=== PATIENT | male | born 1945 | race Caucasian/White ===

== ENCOUNTER 2021-09-22 10:30 | Outpatient (CLI) | payer MEDICARE ==
[2021-09-22 17:30] LABS: SARS-CoV-2 PCR by NAA Not Detected (NotDetected)
== END 2021-09-22 10:31 | disposition home or self-care (01) ==
LOC: CSHLAB 10:30
PROVIDERS: ATTEND Internal Medicine Hematology & Oncology
DX: Z20.822 Contact with and (suspected) exposure to COVID-19 (principal); R16.0 Hepatomegaly, not elsewhere classified; C64.1 Malignant neoplasm of right kidney, except renal pelvis
CPT/HCPCS: U0003; U0005